=== PATIENT | male | born 1995 | race Caucasian/White ===

== ENCOUNTER 2017-10-30 19:09 | Emergency (ER) | payer OTHER, BC ==
[~2017-10-30] VITALS: Ht 160 cm; Wt 64.4 kg
[2017-10-30] MEDS ORDERED: L.E.T. SYRINGE 5 ML MM STA (19:35)
[2017-10-30] MEDS ORDERED: TETANUS,DIPTH,PERTUSS P/F (BOOSTRIX) 0.5 ML VIAL IM STA (19:35)
--- NOTE | 2017-10-30 19:44 | ED Upper Extremity ---
General Chief Complaint: Laceration Stated Complaint: FINGER LAC/PASSED OUT HIT HEAD Source: patient Exam Limitations: no limitations History of Present Illness Date Seen by Provider: Oct 30, 2017 Time Seen by Provider: 19:32 Initial Comments Here with report of finger laceration to the left index finger. This occurred when he was using a knife that was clean at work and accidentally cut himself. Wound is superficial. He was running the finger under water when the pain became very intense in the past out. He did report hitting his head. He is not sure how long he was out. Denies other injury. No other wounds from this. Otherwise feeling better now. Unknown when his last tetanus was. Onset: just prior to arrival (proximally 30-45 minutes ago) Severity: mild Pain/Injury Location: left 2nd finger Method of Injury: incised Modifying Factors: Improves With Immobilization; Worse With Movement Allergies and Home Medications Allergies Coded Allergies: No Known Drug Allergies (Unverified , 10/30/17) Patient Home Medication List Home Medication List Reviewed: Yes Review of Systems Constitutional: see HPI; No chills, No fever Respiratory: no symptoms reported Cardiovascular: see HPI; No chest pain; syncope Musculoskeletal: No back pain, No muscle weakness, No neck pain Skin: lesions Psychiatric/Neurological: Headache (mild posterior residual pain after hitting his head when he passed out. No abrasions, contusion or swelling noted.) Past Asbzgcp-Tvtvvr-Cqvfyw Hx Past Med/Social Hx: Reviewed Nursing Past Med/Soc Hx Patient Social History Alcohol Use: Denies Use Recreational Drug Use: No Smoking Status: Never a Smoker Past Medical History Surgeries: Yes (sinus) Respiratory: No Cardiac: No Neurological: No Family Medical History Reviewed Nursing Family Hx No Pertinent Family Hx Physical Exam Vital Signs Capillary Refill : Height, Weight, BMI Height: '" Weight: lbs. oz. kg; BMI Method: General Appearance: WD/WN, no apparent distress HEENT: PERRL/EOMI, TMs normal, pharynx normal Neck: non-tender, full range of motion, supple, normal inspection Cardiovascular: regular rate, rhythm, no murmur Respiratory: lungs clear, normal breath sounds Gastrointestinal: non tender, soft Hand: normal ROM, Left, laceration (2 cm superficial laceration to the dorsum of the left index finger just distal to the IP joint. Retains full range of motion and distal sensation.) Neurologic/Tendon: normal sensation, normal motor functions, normal tendon functions Neurologic/Psychiatric: alert, normal mood/affect, oriented x 3 Skin: normal color, warm/dry Procedures/Interventions Wound Location: Upper Extremities Other Wound Location Left index finger Wound Length (cm): 2 Wound's Depth, Shape: superficial Wound Explored: contaminated Betadine Prep?: No (Hibiclens) Other Closure Supply: Wound Adhesive Progress Cleaned with Hibiclens and tap water. Covered with skin glue after rinsing. Excellent wound closure achieved. Tolerated procedure well with no complications. Progress/Results/Core Measures Results/Orders My Orders Orders - TEGAN WARE MD Dipht,Pertuss(Acell),Tet Adult (Boostrix (10/30/17 19:35) Let Solution (Let Solution) (10/30/17 19:35) Ct Head Wo (10/30/17 20:21) Acetaminophen Tablet (Tylenol Tablet) (10/30/17 20:21) Progress Progress Note : Progress Note Seen and evaluated. LET applied to the wound. Wound cleaning afterwards. Wound closed with skin glue and covered with dry dressing. No indication for CT scanning of the head or neck as he retains full range of motion without pain there is no obvious injury to the head. No significant residual sequela noted. This was discussed with the patient who agrees. 2024: Patient had wound closed with skin glue and tolerated that well. Patient has much worse headache now. We did rediscuss CT scan of the head and we will go ahead and do that given his current symptoms. 1 g of acetaminophen was given by mouth. Monitor patient. 2100: No acute findings on CT. Discharged home with return precautions. Patient verbalize understanding instructions and agreement with plan. Diagnostic Imaging Diagonstic Imaging: CT Plain Films/CT/US/NM/MRI: head Comments NAME: GENNY RAY MED REC#: [id number] PT STATUS: REG ER : 1995 PHYSICIAN: TEGAN WARE MD ADMIT DATE: 10/30/17/ER Signed Date of Exam: 10/30/17 CT HEAD WO PROCEDURE: CT head without contrast. TECHNIQUE: Multiple contiguous axial images were obtained through the brain without the use of intravenous contrast. INDICATION: Syncope and head injury. No prior studies are available for comparison. The ventricles and sulci are within normal limits. No sulcal effacement, midline shift or hemorrhage is detected. The cisterns are patent. The visualized paranasal sinuses are clear. IMPRESSION: No acute intracranial process is detected. Dictated by: Dictated on workstation # [id number] Dict: 10/30/172034 Trans: 10/30/172050 Interpreted by: RUBA STEINBERG MD Electronically signed by: RUBA STEINBERG MD 10/30/172050 Departure Impression Primary Impression: Finger laceration Qualified Codes: S61.211A - Laceration without foreign body of left index finger without damage to nail, initial encounter Additional Impressions: Minor head injury Qualified Codes: S09.90XA - Unspecified injury of head, initial encounter Concussion Qualified Codes: S06.0X1A - Concussion with loss of consciousness of 30 minutes or less, initial encounter Disposition: 01 HOME, SELF-CARE Condition: Improved Departure-Patient Inst. Decision time for Depature: 19:48 Referrals: UNKNOWN (PCP/Family) Primary Care Physician Patient Instructions: Concussion, Adult (DC), Diphtheria and Tetanus Toxoids, and Acellular Pertussis Vaccine, Laceration Repair With Glue (DC), Minor Head Injury (DC) Add. Discharge Instructions: All discharge instructions reviewed with patient and/or family. Voiced understanding. You may take Tylenol or ibuprofen as needed for pain control. Keep wound clean and dry. Do not put ointment on the wound is this will prematurely released the glue. You may continue to work but keep wound clean and dry. Return for worse pain, swelling, redness, red streaks up the hand, fever or other concerns as needed. TEGAN WARE MD Oct 30, 2017 19:44
[2017-10-30] MEDS ORDERED: ACETAMINOPHEN 500 MG TAB (TYLENOL) PO STA (20:21)
--- NOTE | 2017-10-30 20:38 | Diagnostic Imaging Report ---
PROCEDURE: CT head without contrast. TECHNIQUE: Multiple contiguous axial images were obtained through the brain without the use of intravenous contrast. INDICATION: Syncope and head injury. No prior studies are available for comparison. The ventricles and sulci are within normal limits. No sulcal effacement, midline shift or hemorrhage is detected. The cisterns are patent. The visualized paranasal sinuses are clear. IMPRESSION: No acute intracranial process is detected. Dictated by: Dictated on workstation # [id number]
[2017-10-30 21:12] VITALS: BP 114/72
== END 2017-10-30 21:14 | disposition home or self-care (01) ==
LOC: ER 19:13
DX: S06.0X9A Concussion with loss of consciousness of unspecified duration, initial encounter (principal); S61.211A Laceration without foreign body of left index finger without damage to nail, initial encounter; Z23 Encounter for immunization; W26.0XXA Contact with knife, initial encounter; W22.09XA Striking against other stationary object, initial encounter; Y92.59 Other trade areas as the place of occurrence of the external cause; Y99.0 Civilian activity done for income or pay
CPT/HCPCS: 12041; 29130; 70450; 90471; 90715

== ENCOUNTER 2018-04-17 20:15 | Emergency (ER) | payer BC ==
[~2018-04-17] VITALS: Ht 167.6 cm; Wt 64.4 kg
[2018-04-17] MEDS ORDERED: NS IV 1000 ML 1,000 ML IV ONE ×2 (20:20→22:03)
[2018-04-17 20:26] LABS: BASOPHILS % (AUTO) 0 % (0-10); EOSINOPHILS # (AUTO) 0.4 10^3/uL (0.0-0.3); EOSINOPHILS % (AUTO) 7 % (0-10); HEMATOCRIT 39 % (40-54); HEMOGLOBIN 13.5 G/DL (13.3-17.7); LYMPHOCYTES # (AUTO) 0.9 X 10^3 (1.0-4.0); LYMPHOCYTES % (AUTO) 15 % (12-44); MEAN CORPUSCULAR HEMOGLOBIN 28 PG (25-34); MEAN CORPUSCULAR HGB CONC 35 G/DL (32-36); MEAN CORPUSCULAR VOLUME 81 FL (80-99); MEAN PLATELET VOLUME 10.1 FL (7.4-10.4); MONOCYTES # (AUTO) 0.9 X 10^3 (0.0-1.0); MONOCYTES % (AUTO) 15 % (0-12); NEUTROPHILS # (AUTO) 3.9 X 10^3 (1.8-7.8); NEUTROPHILS % (AUTO) 63 % (42-75); PLATELET COUNT 161 10^3/uL (130-400); RED CELL DISTRIBUTION WIDTH 12.2 % (10.0-14.5); WHITE BLOOD COUNT 6.2 10^3/uL (4.3-11.0)
[2018-04-17 20:43] LABS: ALANINE AMINOTRANSFERASE 34 U/L (0-55); ALBUMIN 4.4 GM/DL (3.2-4.5); ALKALINE PHOSPHATASE 68 U/L (40-136); BILIRUBIN,TOTAL 1.1 MG/DL (0.1-1.0); BUN/CREATININE RATIO 27; CALCIUM 9.3 MG/DL (8.5-10.1); CARBON DIOXIDE 23 MMOL/L (21-32); CHLORIDE 103 MMOL/L (98-107); GFR ESTIMATED > 60; GLUCOSE 122 MG/DL (70-105); SODIUM 138 MMOL/L (135-145); TOTAL PROTEIN 7.1 GM/DL (6.4-8.2)
[2018-04-17] MEDS ORDERED: OSELTAMIVIR 75 MG (TAMIFLU) CAPSULE PO ONE (21:15)
--- NOTE | 2018-04-17 21:20 | ED Syncope ---
General Chief Complaint: Neurological Problems Stated Complaint: SEIZURES Nursing Triage Note: PT TO ROOM #5 VIA [facility] CART FROM [facility]. EMS ADVISE PT WAS FOUND OUTSIDE [facility] WITH REPORT OF POSSIBLE SEIZURE ACTIVITY. PROGRAM SUPPORT SPECIALIST EMS ACCESSED 20G IV TO LT FOREARM. UPON ARRIVAL PT A&OX4 WITH RECENT MEMORY IMPAIRMENT. PT REPORTS HE WAS @ WORK, BEGAN TO FEEL NAUSEOUS, AND WENT OUTSIDE TO GET SOME AIR. PT REPORTS HE WOKE UP ON THE GROUND NEXT TO THE TRASH CAN. PT REPORTS THIS AM HE BEGAN TO FEEL SOB WITH INCREASED LETHRAGY. REPORTS TO HAVE BEEN IN [facility] VISITING HIS S/O FOR X2 MONTHS AND HAS BEEN BACK IN THE [place] FOR X3 DAYS. LUNGS CTA. REPORTS TO HAVE BEEN EXPOSED TO INFLUENZA BY HIS SON. DENIES NECK OR BACK PAIN. REPORTS HEADACHE. Source of Information: Patient, EMS Exam Limitations: No Limitations History of Present Illness Date Seen by Provider: Apr 17, 2018 Time Seen by Provider: 20:13 Initial Comments Here by EMS with report of episode of passing out. Apparently he was not feeling well and was outside and was leaning over the trashcan because he thought he was given a vomit. He woke up afterwards with somebody shaking him. He apparently passed out. He stated that he felt weak. His child was diagnosed with influenza a today. He did not start the antiviral today because of cost. Other complicating factor is that he just returned from [facility] 3 days ago and had a very long flight. He does report some shortness of breath and is tachycardic on arrival. Timing/Prior Episodes: No Prior History Symptoms Prior to Episode: Lightheadedness, Nausea Precipitating Factors: None Loss of Consciousness: Brief (Seconds) Current Symptoms: No Chest Pain; Lightheadedness; No Weakness Allergies and Home Medications Allergies Coded Allergies: No Known Drug Allergies (Unverified , 10/30/17) Home Medications Oseltamivir Phosphate 75 Mg Capsule, 75 MG PO BID Prescribed by: TEGAN SANCHEZ on 04/17/18 [id number] Patient Home Medication List Home Medication List Reviewed: Yes Review of Systems Constitutional: see HPI; No chills, No fever; weakness EENTM: no symptoms reported Respiratory: No cough; short of breath Cardiovascular: No chest pain; syncope Gastrointestinal: No abdominal pain; nausea; No vomiting Genitourinary: no symptoms reported Musculoskeletal: no symptoms reported Skin: no symptoms reported All Other Systems Reviewed Negative Unless Noted: Yes Past Jhgxmot-Wiqhfv-Ebfcme Hx Past Med/Social Hx: Reviewed Nursing Past Med/Soc Hx Patient Social History Alcohol Use: Denies Use Recreational Drug Use: No Smoking Status: Never a Smoker 2nd Hand Smoke Exposure: No Recent Foreign Travel: Yes Contact w/Someone Who Travel: Yes Recent Infectious Disease Expo: No Recent Hopitalizations: No Immunizations Up To Date Tetanus Booster (TDap): More than 5yrs PED Vaccines UTD: Yes Seasonal Allergies Seasonal Allergies: No Past Medical History Surgeries: Yes (sinus) Respiratory: No Cardiac: No Neurological: No Genitourinary: No Gastrointestinal: No Musculoskeletal: No Endocrine: No HEENT: No Cancer: No Psychosocial: No Integumentary: No Blood Disorders: No Family Medical History Reviewed Nursing Family Hx No Pertinent Family Hx Physical Exam Vital Signs Vital Signs - First Documented 04/17/18 20:15 Temp 98.6 Pulse 90 Resp 20 B/P (MAP) 129/72 (91) Pulse Ox 97 O2 Delivery Room Air Capillary Refill : Less Than 3 Seconds Height, Weight, BMI Height: 5'6.00" Weight: 142lbs. oz. 64.932047oa; BMI Method:Stated General Appearance: No Apparent Distress, WD/WN HEENT: PERRL/EOMI, Pharyngeal Erythema Neck: Non Tender, Supple Cardiovascular: No Murmur, Tachycardia Respiratory: Lungs Clear, Normal Breath Sounds Gastrointestinal: Non Tender, Soft Back: Normal Inspection, No CVA Tenderness, No Vertebral Tenderness Extremities: Normal Range of Motion, Non Tender, No Calf Tenderness Neurologic/Psychiatric: Alert, Oriented x3 Cranial Nerves: Normal Hearing, Normal Speech, PERRL Motor/Sensory: No Motor Deficit, No Sensory Deficit Skin: Normal Color, Warm/Dry Progress/Results/Core Measures Results/Orders Lab Results Laboratory Tests Test 04/17/18 20:20 Range/Units White Blood Count 6.2 4.3-11.0 10^3/uL Red Blood Count 4.78 4.35-5.85 10^6/uL Hemoglobin 13.5 13.3-17.7 G/DL Hematocrit 39 L 40-54 % Mean Corpuscular Volume 81 80-99 FL Mean Corpuscular Hemoglobin 28 25-34 PG Mean Corpuscular Hemoglobin Concent 35 32-36 G/DL Red Cell Distribution Width 12.2 10.0-14.5 % Platelet Count 161 130-400 10^3/uL Mean Platelet Volume 10.1 7.4-10.4 FL Neutrophils (%) (Auto) 63 42-75 % Lymphocytes (%) (Auto) 15 12-44 % Monocytes (%) (Auto) 15 H 0-12 % Eosinophils (%) (Auto) 7 0-10 % Basophils (%) (Auto) 0 0-10 % Neutrophils # (Auto) 3.9 1.8-7.8 X 10^3 Lymphocytes # (Auto) 0.9 L 1.0-4.0 X 10^3 Monocytes # (Auto) 0.9 0.0-1.0 X 10^3 Eosinophils # (Auto) 0.4 H 0.0-0.3 10^3/uL Basophils # (Auto) 0.0 0.0-0.1 10^3/uL Sodium Level 138 135-145 MMOL/L Potassium Level 4.0 3.6-5.0 MMOL/L Chloride Level 103 98-107 MMOL/L Carbon Dioxide Level 23 21-32 MMOL/L Anion Gap 12 5-14 MMOL/L Blood Urea Nitrogen 30 H 7-18 MG/DL Creatinine 1.10 0.60-1.30 MG/DL Estimat Glomerular Filtration Rate > 60 BUN/Creatinine Ratio 27 Glucose Level 122 H 70-105 MG/DL Calcium Level 9.3 8.5-10.1 MG/DL Corrected Calcium 9.0 8.5-10.1 MG/DL Total Bilirubin 1.1 H 0.1-1.0 MG/DL Aspartate Amino Transf (AST/SGOT) 29 5-34 U/L Alanine Aminotransferase (ALT/SGPT) 34 0-55 U/L Alkaline Phosphatase 68 40-136 U/L C-Reactive Protein High Sensitivity 3.93 H 0.00-0.50 MG/DL Total Protein 7.1 6.4-8.2 GM/DL Albumin 4.4 3.2-4.5 GM/DL Micro Results Microbiology 04/17/18 Influenza Types A,B Antigen (DONI) - Final, Complete My Orders Orders - TEGAN SANCHEZ MD Cbc With Automated Diff (04/17/18 20:20) Comprehensive Metabolic Panel (04/17/18 20:20) Hs C Reactive Protein (04/17/18 20:20) Influenza A And B Antigens (04/17/18 20:20) Saline Lock/Iv-Start (04/17/18 20:20) Ns Iv 1000 Ml (Sodium Chloride 0.9%) (04/17/18 20:20) Ct Angio Chest W (04/17/18 20:20) Oseltamivir 75 Mg Capsule (Tamiflu 75 (04/17/18 21:15) Medications Given in ED Current Medications Medications Dose Ordered Sig/Bri Route Start Time Stop Time Status Last Admin Dose Admin Oseltamivir Phosphate 75 mg ONCE ONCE PO 04/17/18 21:15 04/17/18 21:16 DC 04/17/18 22:01 75 MG Sodium Chloride 1,000 ml @ 0 mls/hr Q0M ONCE IV 04/17/18 20:20 04/17/18 20:23 DC 04/17/18 20:30 0 MLS/HR Vital Signs/I&O 04/17/18 20:15 Temp 98.6 Pulse 90 Resp 20 B/P (MAP) 129/72 (91) Pulse Ox 97 O2 Delivery Room Air Blood Pressure Mean: 91 Progress Progress Note : Progress Note Seen and evaluated. IV by EMS. Labs, normal saline 1 L bolus, influenza screen and CT angiogram of the chest ordered due to recent history of long flight and syncopal episode in the setting of tachycardia to rule out pulmonary embolism. Monitor patient. 2119: Influenza screen is positive for influenza A. Tamiflu 75 mg by mouth initiated. Patient is feeling a little better. CT scan pending. 2147 : CT negative. Patient still tachycardic but fluids are continuing. Otherwise no reason to keep him at this point. Discharged home with return precautions. Patient verbalize understanding instructions and agreement with plan. 03/13/03: Temperature now greater than 102F and heart rate is elevated to 108. We will repeat normal saline 1 L bolus and give ibuprofen and Tylenol. Monitor patient. Diagnostic Imaging Diagonstic Imaging: CT Plain Films/CT/US/NM/MRI: chest Comments [facility] [place] [place] NAME: GENNY RAY Basia MED REC#: [id number] PT STATUS: REG ER : 1995 PHYSICIAN: TEGAN SANCHEZ MD ADMIT DATE: 04/17/18/ER Draft Date of Exam:04/17/18 CT ANGIO CHEST W PROCEDURE: CT angiography of the chest with contrast. TECHNIQUE: Multiple contiguous axial images were obtained through the chest after uneventful bolus administration of intravenous contrast. 2D reconstructed CTA MIP acquisitions were also performed. INDICATION: Seizure. COMPARISON: There are no prior studies available for comparison. FINDINGS: The heart size is within normal limits. The aorta is not abnormally dilated and there is no sign of a dissection. There is no defect within the pulmonary arteries to indicate a pulmonary embolus. The lungs are clear and well aerated. There is no mediastinal or hilar adenopathy. There is a small triangular soft tissue density in the anterior mediastinum. Most likely this is residual thymic tissue. The thyroid gland is generally unremarkable. The sections through the upper abdomen fail to show any sign of an acute abnormality. Both the liver and spleen are prominent. The bone windows show no sign of a fracture or of a destructive lesion. IMPRESSION: 1. There is no evidence for an acute cardiopulmonary abnormality. In particular, there is no sign of a pulmonary embolus or of a dissection. 2. The triangular soft tissue density in the anterior mediastinum is most likely related to residual thymic tissue. 3. These results were discussed with Dr. Sanchez in the ER. Dictated on workstation # [id number] Dict: 04/17/182112 Trans: 04/17/182136 LOCATED WITHIN [facility] [id number] Interpreted by: KATIE CARRILLO MD Electronically signed by: Departure Impression Primary Impression: Influenza A Additional Impression: Syncope Qualified Codes: R55 - Syncope and collapse Disposition: 01 HOME, SELF-CARE Condition: Stable Departure-Patient Inst. Decision time for Depature: 21:49 Referrals: NO,LOCAL PHYSICIAN (PCP/Family) Primary Care Physician Patient Instructions: Flu, Adult (DC), Syncope (Fainting) (DC) Add. Discharge Instructions: All discharge instructions reviewed with patient and/or family. Voiced understanding. You may take Tylenol/acetaminophen 1000 mg every 8 hours as needed for fever or pain. You may take ibuprofen 600 mg every 8 hours as needed for fever or pain. Drink plenty of fluids. Get plenty of rest. Follow-up with your DrVee in a few days for recheck as needed. Return for worse pain, fever, vomiting, weakness, breathing problems or other concerns as needed. Scripts Oseltamivir Phosphate (Oseltamivir Phosphate) 75 Mg Capsule 75 MG PO BID, #9 CAP 0 Refills Prov: TEGAN SANCHEZ MD 04/17/18 TEGAN SANCHEZ MD Apr 17, 2018 21:20
--- NOTE | 2018-04-17 21:37 | Diagnostic Imaging Report ---
PROCEDURE: CT angiography of the chest with contrast. TECHNIQUE: Multiple contiguous axial images were obtained through the chest after uneventful bolus administration of intravenous contrast. 2D reconstructed CTA MIP acquisitions were also performed. INDICATION: Seizure. COMPARISON: There are no prior studies available for comparison. FINDINGS: The heart size is within normal limits. The aorta is not abnormally dilated and there is no sign of a dissection. There is no defect within the pulmonary arteries to indicate a pulmonary embolus. The lungs are clear and well aerated. There is no mediastinal or hilar adenopathy. There is a small triangular soft tissue density in the anterior mediastinum. Most likely this is residual thymic tissue. The thyroid gland is generally unremarkable. The sections through the upper abdomen fail to show any sign of an acute abnormality. Both the liver and spleen are prominent. The bone windows show no sign of a fracture or of a destructive lesion. IMPRESSION: 1. There is no evidence for an acute cardiopulmonary abnormality. In particular, there is no sign of a pulmonary embolus or of a dissection. 2. The triangular soft tissue density in the anterior mediastinum is most likely related to residual thymic tissue. 3. These results were discussed with KLAUDIA Monge in the ER. Dictated by: Dictated on workstation # [id number]
[2018-04-17] MEDS ORDERED: OSEL75CA15 PO (21:51)
[2018-04-17] MEDS ORDERED: IBUPROFEN TABLET 200 MG TAB PO STA (22:03)
[2018-04-17] MEDS ORDERED: ACETAMINOPHEN 500 MG TAB (TYLENOL) PO STA (22:03)
[2018-04-17 22:59] VITALS: BP 123/75
== END 2018-04-17 23:00 | disposition home or self-care (01) ==
LOC: EDUNIT# 20:15 → ER 20:16
DX: J10.1 Influenza due to other identified influenza virus with other respiratory manifestations (principal); R55 Syncope and collapse
CPT/HCPCS: 36415; 71275; 80053; 85025; 86141; 87804